=== PATIENT | male | born 1990 | race Caucasian/White ===

== ENCOUNTER 2023-03-13 11:52 | Emergency (ER) | payer SELFPAY ==
[2023-03-13 12:00] VITALS: BP 143/92; PULSE 120; RESP 20; TEMP 36.7; O2SAT 96; BMI 26.6
[2023-03-13 12:20] LABS: Basophils # 0.1 10^3/uL (0.0-0.1); Basophils % 0.5 %; Eosinophils # 0.1 10^3/uL (0.0-0.8); Eosinophils % 0.5 %; Hematocrit 50.3 % (42.0-52.0); Hemoglobin 17.5 g/dL (11.7-16.6); Lymphocytes # 2.6 10^3/uL (0.8-4.8); Lymphocytes % 20.2 %; Mean Corpuscular HGB Conc 34.8 g/dL (30.0-36.0); Mean Corpuscular Hemoglobin 29.3 pg (28.0-34.0); Mean Corpuscular Volume 84.3 fl (80-94); Mean Platelet Volume 10.8 fL (7.4-10.4); Monocytes # 1.4 10^3/uL (0.2-0.9); Monocytes % 10.6 %; Neutrophils # 8.85 10^3/uL (1.8-7.7); Neutrophils % 67.6 %; Nucleated Red Blood Cells % 0 %; Platelet Count 378 10^3/cmm (130-400); Red Blood Count 5.97 10^6/uL (4.1-5.3); Red Cell Distribution Width 12.4 % (12.1-15.1); White Blood Count 13.1 10^3/uL (4.0-10.0)
--- NOTE | 2023-03-13 12:38 | W.ED.GENADLT ---
HPI - General Adult General: Chief complaint: Headache Stated complaint: Light headed, Nausea, Lethargic Time Seen by Provider: 03/13/23 12:16 History of Present Illness: Patient is a 32-year-old male who comes to the ED with nausea and concern for heatstroke. Symptoms occurred yesterday when he was working outside. 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 He started getting dizzy, nauseous and feel like he was going to pass out. He was also getting some muscle cramps in his back and legs as well. Endorses lower back pain bilaterally. Patient denies any chest pain or syncopal episode. Today he woke up and he had a headache, nausea and muscle cramps and came here to the ED to get evaluated. Patient says he has had similar episode like this in the past when he lived out in [place] Patient did drink an energy drink yesterday while at work. Denies any other symptoms. Associated symptoms: Reports headache(s) and nausea; Deny chest pain, dyspnea, rash, palpitations or vomiting Review of Systems Const: Denies: fever(s), chills or fatigue Eyes: Denies: change in vision or eye discomfort ENMT: Denies: throat pain, odynophagia, nasal discharge or nasal congestion Card: Denies: chest pain, palpitations, edema, swelling of feet/ankles, dyspnea on exertion or orthopnea Resp: Denies: dyspnea, productive cough or non-productive cough GI: Reports: nausea; Denies: abdominal pain, vomiting, diarrhea, constipation or hematochezia : Denies: flank pain, difficulty urinating, dysuria or hematuria Musc: Reports: back pain (Bilateral lower back pain) and muscle cramps; Denies: neck pain or extremity swelling Skin/Breast: Denies: rash or new lesions Neuro: Reports: headache(s) and dizziness; Denies: numbness in extremities or weakness in extremities PFS ED PFSH: Medical History No pertinent family history Surgical History No pertinent past surgical history Physical Exam Const: COMMON NORMALS: no acute distress, patient oriented x3, healthy appearing and alert GENERAL APPEARANCE: cooperative and comfortable HENMT: COMMON NORMALS: normocephalic HEAD & SCALP: normocephalic MOUTH: Normal oral and palatal mucosa present THROAT: posterior oropharynx normal and uvula midline Neck/C-Spine: COMMON NORMALS: supple GENERAL: Yes normal visual inspection Resp: COMMON NORMALS: normal respiratory effort, No retractions, No use of accessory muscles and clear to auscultation bilaterally AUSCULTATION: clear to auscultation bilaterally Cardio: COMMON NORMALS: regular rate, regular rhythm, S1 normal heart sound present, S2 normal heart sound present, No gallops present (Cardio), No clicks present (Cardio), No murmurs present (Cardio) and Peripheral pulses 2+ throughout RATE: regular rate RHYTHM: regular rhythm HEART SOUNDS: S1 normal heart sound present and S2 normal heart sound present PERIPHERAL PULSES: Peripheral pulses 2+ throughout GI: COMMON NORMALS: Normal to inspection, nondistended, normoactive bowel sounds present, Soft to palpation, non-tender and no masses PALPATION: Yes Soft to palpation : COMMON NORMALS: Yes no CVA tenderness BLADDER/KIDNEY EXAM: Yes no CVA tenderness and Yes CVA tenderness Back/Pelvis: COMMON NORMALS: no CVA tenderness GENERAL BACK: Yes CVA tenderness CVA tenderness: bilateral LUMBAR SPINE/LOWER BACK: Yes paraspinal muscle tenderness Lumbar paraspinal muscle tenderness: bilateral Extremity: COMMON NORMALS: normal to inspection Neuro: COMMON NORMALS: patient oriented x3 SENSORIUM/ORIENTATION: Yes alert GAIT: Yes Normal gait present Skin: GENERAL SKIN EXAM: dry skin Course Vital Signs: Vital signs: Vital Signs Temperature 98.0 F 03/13/23 12:00 Pulse Rate 72 03/13/23 15:52 Respiratory Rate 16 03/13/23 15:52 Blood Pressure 138/81 03/13/23 15:52 Pulse Oximetry 96 03/13/23 15:52 Oxygen Delivery Me thod Room Air 03/13/23 15:52 [facility] - General Adult Medical Decision Making Patient is a 32-year-old male who comes to the ED with nausea and concern for heatstroke. Symptoms occurred yesterday when he was working outside. 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 He started getting dizzy, nauseous and feel like he was going to pass out. He was also getting some muscle cramps in his back and legs as well. Endorses lower back pain bilaterally. Patient denies any chest pain or syncopal episode. Today he woke up and he had a headache, nausea and muscle cramps and came here to the ED to get evaluated. Patient says he has had similar episode like this in the past when he lived out in [place] and was [place] the [place]. Patient did drink an energy drink yesterday while at work. Denies any other symptoms. Vitals are stable. Patient is a healthy 32-year-old male who appears nontoxic in no acute distress or pain. He has some bilateral lumbar paraspinal muscle tenderness and some possible mild CVA tenderness bilaterally. The rest of his exam is benign. White blood cell count of 13.1 and the rest of CBC was unremarkable. Patient had a creatinine of 1.7 and the rest of CMP was unremarkable. UA showed some red blood cells but no other signs of infection. CT of abdomen pelvis showed no acute findings. Patient was given 2 L of IV fluids, pain med and muscle relaxer here in the ED his symptoms improved. His BMP was rechecked after 2 L of fluids and his creatinine level went down to 1.4. Patient is stable for discharge home and diagnosed with dehydration, back pain and elevated serum creatinine. He was told to follow-up with his PCP in the next 3 to 5 days for reevaluation and to have his creatinine levels rechecked that his PCP office. Strict return to ED precautions given. Patient understood and agreed with plan Lab Data I reviewed the patient's lab results. 03/13/23 12:11 03/13/23 15:45 Radiology Impressions Abdomen/Pelvis CT 03/13/23 13:34 IMPRESSION: No acute findings. Somewhat limited exam due to lack of contrast. Laboratory Results WBC 13.1 10^3/uL (4.0-10.0) H 03/13/23 12:11 RBC 5.97 10^6/uL (4.1-5.3) H 03/13/23 12:11 Hgb 17.5 g/dL (11.7-16.6) H 03/13/23 12:11 Hct 50.3 % (42.0-52.0) 03/13/23 12:11 MCV 84.3 fl (80-94) 03/13/23 12:11 MCH 29.3 pg (28.0-34.0) 03/13/23 12:11 MCHC 34.8 g/dL (30.0-36.0) 03/13/23 12:11 RDW 12.4 % (12.1-15.1) 03/13/23 12:11 Plt Count 378 10^3/cmm (130-400) 03/13/23 12:11 MPV 10.8 fL (7.4-10.4) H 03/13/23 12:11 Neut % (Auto) 67.6 % 03/13/23 12:11 Lymph % (Auto) 20.2 % 03/13/23 12:11 [place] % (Auto) 10.6 % 03/13/23 12:11 Eos % (Auto) 0.5 % 03/13/23 12:11 Baso % (Auto) 0.5 % 03/13/23 12:11 Neut # (Auto) 8.85 10^3/uL (1.8-7.7) H 03/13/23 12:11 Lymph # (Auto) 2.6 10^3/uL (0.8-4.8) 03/13/23 12:11 [place] # (Auto) 1.4 10^3/uL (0.2-0.9) H 03/13/23 12:11 Eos # (Auto) 0.1 10^3/uL (0.0-0.8) 03/13/23 12:11 Baso # (Auto) 0.1 10^3/uL (0.0-0.1) 03/13/23 12:11 Nucleated RBC % (auto) 0 % 03/13/23 12:11 Nucleated RBCs # 0.0 /100WBC 03/13/23 12:11 Sodium 136 mmol/L (136-145) 03/13/23 15:45 Potassium 4.0 mmol/L (3.5-5.1) 03/13/23 15:45 Chloride 102 mmol/L (98-107) 03/13/23 15:45 Carbon Dioxide 22 mmol/L (22-29) 03/13/23 15:45 Anion Gap 16.0 (5-19) 03/13/23 15:45 BUN 29 mg/dL (6-20) H 03/13/23 15:45 Creatinine 1.4 mg/dL (0.7-1.2) H 03/13/23 15:45 GFR Calculation 59.5 mL/min (90-130) L 03/13/23 15:45 Glucose 85 mg/dL (65-115) 03/13/23 15:45 Calculated Osmolality 287 mOsm/kg (285-295) 03/13/23 15:45 Calcium 8.2 mg/dL (8.5-10.5) L 03/13/23 15:45 Total Bilirubin 1.1 mg/dL (0.15-1.2) 03/13/23 12:11 AST 20 U/L (0-40) 03/13/23 12:11 ALT 17 U/L (0-41) 03/13/23 12:11 Alkaline Phosphatase 90 U/L (40-130) 03/13/23 12:11 Total Protein 8.1 g/dL (6.6-8.7) 03/13/23 12:11 Albumin 5.0 g/dL (3.5-5.2) 03/13/23 12:11 Globulin 3.1 g/dL (1.3-4.6) 03/13/23 12:11 Lipase 34 U/L (13-60) 03/13/23 12:11 Urine Color Yellow (Yellow) 03/13/23 12:59 Urine Appearance Hazy (CLEAR) A 03/13/23 12:59 Urine pH 5 (5-7) 03/13/23 12:59 Ur Specific [place] 1.020 (1.005-1.030) 03/13/23 12:59 Urine Protein 1+ (Negative) H 03/13/23 12:59 Urine Glucose (UA) Norm (Normal) 03/13/23 12:59 Urine Ketones 1+ (Negative) H 03/13/23 12:59 Urine Blood 3+ (Negative) H 03/13/23 12:59 Urine Nitrate Negative (Negative) 03/13/23 12:59 Urine Bilirubin 1+ (Negative) H 03/13/23 12:59 Urine Urobilinogen 1 mg/dL (Negative) H 03/13/23 12:59 Ur Leukocyte Esterase Negative (Negative) 03/13/23 12:59 Urine RBC 80-100 /hpf (0-2) H 03/13/23 12:59 Urine WBC 0-4 /hpf (0-5) H 03/13/23 12:59 Ur Squamous Epith Cells None /hpf (0-5) 03/13/23 12:59 Amorphous Sediment Not Reportable 03/13/23 12:59 Urine Bacteria Trace /hpf (NONE) 03/13/23 12:59 Hyaline Casts 0-4 /lpf H 03/13/23 12:59 Fine Granular Casts 0-4 /lpf H 03/13/23 12:59 Urine Mucus 1+ /hpf 03/13/23 12:59 Discharge Plan Discharge Patient Disposition: Home Clinical Impression: Dehydration, Elevated serum creatinine Back pain Qualifiers: Back pain location: low back pain Chronicity: acute Back pain laterality: bilateral Sciatica presence: unspecified whether sciatica present Qualified Code(s): M54.50 - Low back pain, unspecified Condition: Stable Discharge Orders: Discharge ED (Routine); Ordered 03/13/23 Ordered By: Yousuf Stahl Discharge Diet: Regular Discharge Activity: Increase activity as tolerated Patient Instructions: Dehydration (ED) Activity Restrictions/Additional Instructions: Follow-up with medical provider as directed in the next 3 to 5 days for reevaluation. Have your primary care doctor recheck your creatinine levels as well. Make sure you drink plenty of fluids and stay hydrated. Return to the ER or your medical provider if condition worsens. Please read and understand discharge instructions. Thank you for choosing [facility] for your healthcare needs today. Please realize this is an emergency room and that we are providing you with a medical screening exam and this may not be complete and all inclusive of all the testing and or work up that you may need to determine your ailment or severity of your illness. It is very important that you follow up as instructed or that you return to the Emergency Department should you have concerns or if your condition changes or worsens in any way. Coding Level of Care Code ED Director Medical Safety for Ben Richards
[2023-03-13 12:40] LABS: Alanine Aminotransferase 17 U/L (0-41); Alkaline Phosphatase 90 U/L (40-130); Aspartate Amino Transferase 20 U/L (0-40); Blood Urea Nitrogen 32 mg/dL (6-20); Calcium 9.5 mg/dL (8.5-10.5); Carbon Dioxide 24 mmol/L (22-29); Chloride 96 mmol/L (98-107); Globulin 3.1 g/dL (1.3-4.6); Glomerular Filtration Rate 47.6 mL/min (90-130); Glucose 86 mg/dL (65-115); Lipase 34 U/L (13-60); Osmolality Calculated 286 mOsm/kg (285-295); Sodium 135 mmol/L (136-145); Total Bilirubin 1.1 mg/dL (0.15-1.2); Total Protein 8.1 g/dL (6.6-8.7)
[2023-03-13 12:47] LABS: Anion Gap 19.3 (5-19); Potassium 4.3 mmol/L (3.5-5.1)
[2023-03-13 12:53] VITALS: BP 142/98; PULSE 103; RESP 16; O2SAT 95
[2023-03-13] MEDS: sodium chloride 0.9% 1,000 ML 999 ML IV ×2 (13:30→14:14)
[2023-03-13] MEDS: orphenadrine 30 mg/mL Inj 2 mL 60 MG IVP (13:30)
[2023-03-13] MEDS: ondansetron 2 mg/ML SDV 2 mL 4 MG IVP (13:30)
--- NOTE | 2023-03-13 13:34 | CTR_ITS ---
PROCEDURE INFORMATION: Exam: CT Abdomen And Pelvis Without Contrast Exam date and time: 03/13/2023 2:46 PM Age: 32 years old Clinical indication: Abdominal pain; Flank; Other: Bilateral; Additional info: Bilateral flank pain, elevated creatinine TECHNIQUE: Imaging protocol: Computed tomography of the abdomen and pelvis without contrast. Radiation optimization: All CT scans at this facility use at least one of these dose optimization techniques: automated exposure control; mA and/or kV adjustment per patient size (includes targeted exams where dose is matched to clinical indication); or iterative reconstruction. REPORTING DATA: Count of CT and Cardiac NM exams in prior 12 months: This patient has received 0 known CTs and 0 known cardiac nuclear medicine studies in the 12 months prior to the current study. COMPARISON: No relevant prior studies available. RADIATION DOSE METRICS: Total DLP (mGy-cm): 482.87 FINDINGS: Liver: Normal. No mass. Gallbladder and bile ducts: Normal. No calcified stones. No ductal dilation. Pancreas: Normal. No ductal dilation. Spleen: Normal. No splenomegaly. Adrenal glands: Normal. No mass. Kidneys and ureters: No obstructing calculus. No hydronephrosis. Stomach and bowel: Low-moderate amount of fecal retention. No obvious bowel dilatation, pneumatosis or suspicious bowel wall thickening however assessment is limited due to lack of contrast. Appendix: No evidence of appendicitis. Intraperitoneal space: Unremarkable. No free air. No significant fluid collection. Vasculature: No abdominal aortic aneurysm. Lymph nodes: No enlarged lymph nodes. Urinary bladder: Unremarkable as visualized. Reproductive: Unremarkable as visualized. Bones/joints: No acute fracture. Soft tissues: No acute findings. CT/CT abdomen pelvis con [id number] IMPRESSION: No acute findings. Somewhat limited exam due to lack of contrast.
[2023-03-13 13:35] VITALS: PULSE 91; RESP 16; O2SAT 95
[2023-03-13 13:35] LABS: Add Urine Microscopic? YES; Bilirubin Urine 1+ (Negative); Blood Urine 3+ (Negative); Glucose Urine UA Norm (Normal); Ketones Urine 1+ (Negative); Leukocyte Esterase Urine Negative (Negative); Nitrate Urine Negative (Negative); Protein Urine 1+ (Negative); Urine Appearance Hazy (CLEAR); Urine Color Yellow (Yellow); Urobilinogen Urine 1 mg/dL (Negative); pH Urine 5 (5-7)
[2023-03-13 13:36] LABS: RBC Urine 80-100 /hpf (0-2); WBC Urine 0-4 /hpf (0-5)
[2023-03-13 13:37] LABS: Bacteria Urine TRACE /hpf; Fine Granular Casts Urine 0-4 /lpf; Hyaline Casts Urine 0-4 /lpf
[2023-03-13 13:38] LABS: Add Urine Culture? Yes; Mucus Urine 1+ /hpf
[2023-03-13] MEDS: acetaminophen 1,000 MG/100 ML PIGGYBACK 400 MG IV (13:38)
[2023-03-13 15:52] VITALS: BP 138/81; PULSE 72; RESP 16; O2SAT 96
[2023-03-13 16:07] LABS: Blood Urea Nitrogen 29 mg/dL (6-20); Calcium 8.2 mg/dL (8.5-10.5); Carbon Dioxide 22 mmol/L (22-29); Chloride 102 mmol/L (98-107); Glomerular Filtration Rate 59.5 mL/min (90-130); Glucose 85 mg/dL (65-115); Osmolality Calculated 287 mOsm/kg (285-295); Sodium 136 mmol/L (136-145)
--- NOTE | 2023-03-18 13:39 | DCPLANNER ---
compliance project manager called patient due to no primary care physician - no answer at this time.
== END 2023-03-13 16:35 | disposition home or self-care (01) ==
PROVIDERS: Emergency Medicine; Emergency Provider Physician Assistant
DX: E86.0 Dehydration (principal); M54.50 Low back pain, unspecified; R79.89 Other specified abnormal findings of blood chemistry
CPT/HCPCS: 36415; 74176; 80048; 80053; 81001; 83690; 85025; 87086; 96361; 96365; 96366; 96375; 99285; J0131; J2360; J2405; J7030